=== PATIENT | female | born 1950 | race Caucasian/White ===

== ENCOUNTER 2016-07-05 09:00 | Outpatient (CLI) ==
[2014-06-15 19:50] VITALS: BMI 23.3
== END 2016-07-05 09:01 | disposition home or self-care (01) ==
LOC: LAB 09:00
PROVIDERS: ATTEND Clinical Nurse Specialist
DX: E78.2 Mixed hyperlipidemia (principal)
CPT/HCPCS: 36415; 80061

== ENCOUNTER 2017-04-07 13:35 | Outpatient (CLI) ==
[2014-06-15 19:50] VITALS: BMI 23.3
== END 2017-04-07 13:36 | disposition home or self-care (01) ==
LOC: RAD 13:35
PROVIDERS: ATTEND Family Medicine
DX: Z12.31 Encounter for screening mammogram for malignant neoplasm of breast (principal)
CPT/HCPCS: 77067

== ENCOUNTER 2017-04-16 08:51 | Outpatient (CLI) | payer OTHER ==
[2014-06-15 19:50] VITALS: BMI 23.3
--- NOTE | 2017-04-16 09:48 | MAMMO ---
EXAM: Right digital diagnostic mammogram (2-D and 3-D) History: Right breast asymmetry. Comparison: Screening mammogram 04/07/2017 Findings: Right breast density is scattered. CAD was reviewed by the radiologist. Tomosynthesis wa s performed. Additional spot compression views of the right breast demonstrate normal superimposed br east parenchyma. There are no suspicious masses and no architectural distortions. No microcalcifica tions. Impression: Benign right mammogram. Recommend return to routine screening mammography schedule. BIRADS 2
== END 2017-04-16 08:52 | disposition home or self-care (01) ==
LOC: RAD 08:51
PROVIDERS: ATTEND Family Medicine
DX: R92.8 Other abnormal and inconclusive findings on diagnostic imaging of breast (principal)

== ENCOUNTER 2017-12-01 13:36 | Emergency (ER) | payer OTHER ==
[2017-12-01 13:39] VITALS: BP 150/90; TEMP 98.6; BMI 25.8
--- NOTE | 2017-12-01 14:36 | ED.PDOC ---
General ED Provider: Dr. PIPER MATHEW Chief Complaint: Urinary Problem Stated Complaint: DYSURIA Time Seen by Physician: 01:39 (NURSE PRESENT AT ALL TIMES ) Mode of Arrival: Walk-In Information Source: Patient Exam Limitations: Other (BLADDER SUSPENSE ISSUE ) Primary Care Provider: CHELSEA LACY Nursing and Triage Documentation Reviewed and Agree: Yes Does patient meet sepsis criteria?: No System Inflammatory Response Syndrome: Not Applicable Sepsis Protocol: For patient's 13 years and over: Temp is 96.8 and below OR 101 and greater Pulse >90 BPM Resp >20/minute Acutely Altered Mental Status Are patient's symptoms suggestive of a new infection, such as: -Pneumonia -Skin, Soft Tissue -Endocarditis -UTI -Bone, Joint Infection -Implantable Device -Acute Abdominal Infection -Wound Infection -Meningitis -Blood Stream Catheter Infection -Unknown Complaint Exam - Complaint/Exam Patient Complains of: Reports: Dysuria Onset/Duration: 10 DAYS Symptoms Are: Still present Timing: Intermittent Initial Severity: Moderate Current Severity: Mild Location of Pain: Reports: Suprapubic Character: Reports: Burning, Dull Aggravating: Reports: Urination Alleviating: Reports: None Associated Signs and Symptoms: Reports: Dysuria. Denies: Diaphoresis, Back pain , Fever, Hematuria, Constipation, Blood in stool, Rectal pain, Appetite change, Nausea, Vomiting, Decreased urine output, Increased urine frequency, Increased thirst, Decreased activity, Lethargy, Abdominal Pain, Bubble bath use, Vaginal bleeding, Vaginal discharge, Genital swelling, Genital blisters, Retained foreign body Ovarian Torsion Risk Factors: Reports: None Surgical Obstruction Risk Factors: Reports: None RH Status: Unknown Related Surgical History: Reports: None Abdominal Findings: Present: None Differential Diagnoses: UTI Review of Systems - Review Of Systems Constitutional: Reports: No symptoms Eyes: Reports: No symptoms Ears, Nose, Mouth, Throat: Reports: No symptoms Respiratory: Reports: No symptoms Cardiac: Reports: No symptoms GI: Reports: No symptoms : Reports: Dysuria Musculoskeletal: Reports: No symptoms Skin: Reports: No symptoms Neurological: Reports: No symptoms Endocrine: Reports: No symptoms Hematologic/Lymphatic: Reports: No symptoms All Other Systems: Reviewed and Negative Past Medical History - Past Medical History Previously Healthy: Yes Endocrine: Reports: None Cardiovascular: Reports: None Respiratory: Reports: None Hematological: Reports: None Gastrointestinal: Reports: None Genitourinary: Reports: UTI Neuro/Psych: Reports: None Musculoskeletal: Reports: None Cancer: Reports: None Last Menstrual Period: n/a - Surgical History General Surgical History: Reports: None - Family History Family History: Reports: None - Social History Smoking Status: Never smoker Hx Substance Use: No Alcohol Screening: None Physical Exam - Physical Exam Appearance: Well-appearing, No pain distress, Well-nourished Eyes: TAINA, EOMI, Conjunctiva clear ENT: Ears normal, Nose normal, Oropharynx normal Respiratory: Airway patent, Breath sounds clear, Breath sounds equal, Respirations nonlabored Cardiovascular: RRR, Pulses normal, No rub, No murmur GI/: Soft, Nontender, No masses, Bowel sounds normal, No Organomegaly Musculoskeletal: Normal strength, ROM intact, No edema, No calf tenderness Skin: Warm, Dry, Normal color Neurological: Sensation intact, Motor intact, Reflexes intact, Cranial nerves intact, Alert, Oriented Psychiatric: Affect appropriate, Mood appropriate Critical Care Note - Critical Care Note Total Time (mins): 0 Course - Course Hematology/Chemistry: 12/01/17 13:59 Orders, Labs, Meds: Lab Review 12/01/17 12/01/17 13:48 13:59 WBC 6.44 RBC 3.84 L Hgb 12.2 Hct 36.8 L MCV 95.8 MCH 31.8 H MCHC 33.2 RDW Coeff of Asaf 13.4 Plt Count 295 Immature Gran % (Auto) 0.5 Neut % (Auto) 66.1 Lymph % (Auto) 26.6 [place] % (Auto) 5.4 Eos % (Auto) 1.1 Baso % (Auto) 0.3 Immature Gran # (Auto) 0.0 Neut # (Auto) 4.3 Lymph # (Auto) 1.7 [place] # (Auto) 0.4 Eos # (Auto) 0.1 Baso # (Auto) 0.0 Urine Color Yellow Urine Clarity Clear Urine pH 6.0 Ur Specific [place] 1.010 Urine Protein Negative Urine Glucose (UA) Negative Urine Ketones Negative Urine Blood Negative Urine Nitrite Positive Urine Bilirubin Negative Urine Urobilinogen 0.2 Ur Leukocyte Esterase Negative Urine Microscopic RBC 0-2 Urine Microscopic WBC 0-2 Ur Squamous Epith Cells 0-2 Urine Bacteria 1+ Orders Category Date Time Status CBC W/ AUTO DIFF Stat LAB 12/01/17 13:59 Completed COMPREHENSIVE METABOLIC PANEL Stat LAB 12/01/17 13:59 Received URINALYSIS C & S IF INDICATED Stat LAB 12/01/17 13:48 Completed URINE CULTURE Stat LAB 12/01/17 14:40 Received Ceftriaxone Sodium [Rocephin] MEDS 12/01/17 14:41 Discontinued 1 gm IM ONCE STA Lidocaine HCl/Pf [Lidocaine HCl 1% Sdv] MEDS 12/01/17 14:41 Discontinued 2.1 ml IM ONCE STA Medications Discontinued Medications Generic Name Dose Route Start Last Admin Trade Name Guerrero PRN Reason Stop Dose Admin Ceftriaxone Sodium 1 gm 12/01/17 14:41 Rocephin IM 12/01/17 14:42 ONCE STA Lidocaine HCl 2.1 ml 12/01/17 14:41 Lidocaine Hcl 1% Sdv IM 12/01/17 14:42 ONCE STA Vital Signs: Temp Pulse Resp BP Pulse Ox 12/01/17 13:37 98.6 F 93 H 16 150/90 H 95 Departure - Departure Time of Disposition: 14:43 Disposition: HOME SELF-CARE Discharge Problem: Urinary symptoms, Urinary tract infectious disease Instructions: Dysuria (ED), Urinary Tract Infection in Women (ED) Condition: Good Pt referred to PMD for follow-up: Yes IPMP verified?: No Additional Instructions: Please call your Family Physician as soon as possible to schedule a follow-up appointment. Prescriptions: Hydrocodone/Acetaminophen [[place] 10-325 Tablet] 1 each PO Q8HR #12 tablet Allergies/Adverse Reactions: Allergies cefadroxil hydrate [From [facility] [place]] Adverse Reaction (Verified 12/01/17 13:40) Home Medications: Ambulatory Orders Alprazolam 0.5 mg PO BEDTIME PRN 12/01/17 Aspirin 325 mg PO DAILY 12/01/17 Calcium Carbonate [Calcium] 600 mg PO DAILY 12/01/17 Carvedilol 6.25 mg PO DAILY 12/01/17 Cholecalciferol (Vitamin D3) [Vitamin D-400] 400 unit PO DAILY 12/01/17 Cyanocobalamin (Vitamin B-12) [Vitamin B-12] 500 mcg PO DAILY 12/01/17 Furosemide 20 mg PO DAILY 12/01/17 Hydrocodone/Acetaminophen [[place] 10-325 Tablet] 1 each PO Q8HR #12 tablet Loperamide HCl [Imodium] 2 mg PO LOOSE STOOL PRN PRN 12/01/17 Multivitamin 1 cap PO DAILY 12/01/17 Omeprazole [Prilosec] 20 mg PO QDAC 12/01/17 Sacubitril/Valsartan [Entresto 24 mg-26 mg Tablet] 1 each PO DAILY 12/01/17 Spironolactone 25 mg PO DAILY 12/01/17 Vitamin E 400 unit PO DAILY 12/01/17 Disposition Discussed With: Patient
[2017-12-01] MEDS ORDERED: ROCEPHIN IM STA (14:41)
[2017-12-01] MEDS ORDERED: LIDOCAINE HCL 1% SDV IM STA (14:41)
== END 2017-12-01 15:07 | disposition home or self-care (01) ==
LOC: ED 13:36
DX: R30.0 Dysuria (principal); N39.0 Urinary tract infection, site not specified
CPT/HCPCS: 36415; 80053; 81001; 85025; 87086; 96372; 99283

== ENCOUNTER 2018-01-06 10:35 | Day surgery (SDC) | payer OTHER ==
[2018-01-06 10:50] VITALS: TEMP 97.8
[2018-01-06] MEDS ORDERED: VERSED ONE (11:12)
[2018-01-06] MEDS ORDERED: DIPRIVAN 20 ML VIAL IVP ONE (11:12)
--- NOTE | 2018-01-07 13:03 | OP ---
INDICATIONS FOR PROCEDURE: 67-year-old female presents for colonoscopy exam. She has a remote history of colon polyp of unknown pathology with left colonoscopy greater than 5 years ago. She has a family history of colon cancer involving her father. MEDICATIONS: SEE ANESTHESIA NOTES. PROCEDURE: COLONOSCOPY. REPORT: The risks, benefits, alternatives and limitations were discussed in detail with the patient. Informed consent was obtained. After adequate sedation was achieved, a digital rectal exam revealed good tone, no masses. The colonoscope was introduced into the rectum and advanced under direct visual guidance to the cecum. The cecum was identified by the appendiceal orifice and IC valve. In the cecum there was a small AVM. I then slowly withdrew the scope in circumferential manner examining the mucosa quite carefully. I looked on the proximal and distal side of folds and flexures as best as possible. I was able to retroflex the scope in the right colon and left colon to increase visualization. I noted a few diverticula scattered throughout the sigmoid colon. No other abnormalities were noted. The prep was good. The withdrawal time was 6 minutes and 15 seconds. The patient tolerated the procedure well with stable vital signs and pulse oximetry throughout. IMPRESSION: 1. SMALL CECAL AVM. 2. SIGMOID DIVERTICULOSIS. RECOMMENDATIONS: 1. High fiber diet. 2. Office visit as needed. 3. Colonoscopy examination again in 5 years, sooner if she would have any signs or symptoms to indicate otherwise. CC: DR. REGINO BARROSO
[2018-01-08 13:57] VITALS: BP 132/67
== END 2018-01-06 12:35 | disposition home or self-care (01) ==
LOC: SURG 10:35
PROVIDERS: ATTEND Internal Medicine Gastroenterology
DX: Z86.010 Personal history of colon polyps (principal); Q27.33 Arteriovenous malformation of digestive system vessel; K57.90 Diverticulosis of intestine, part unspecified, without perforation or abscess without bleeding
CPT/HCPCS: 00811; G0105

== ENCOUNTER 2018-05-06 10:58 | Outpatient (CLI) | payer OTHER ==
--- NOTE | 2018-05-08 09:08 | MAMMO ---
EXAM: Digital screening mammogram with tomosynthesis and and catheter HISTORY: Screening mammogram COMPARISON: Mammogram 04/16/2017 and 04/07/2017 FINDINGS: Bilateral CC and MLO views of the breasts were performed digitally and demonstrate scatter ed fibroglandular breast density. Benign stable right breast nodule is redemonstrated. There is a n odular asymmetry noted in the medial left breast on CC view with an adjacent benign-appearing calcifi cation. This is more prominent than on prior examination and measures 4.9 cm from the nipple. IMPRESSION: Nodular asymmetry in the medial left breast RECOMMENDATION: Left breast be spot compression views with diagnostic ultrasound as clinically indicated BIRADS category 0: Needs further evaluation
== END 2018-05-06 10:59 | disposition home or self-care (01) ==
LOC: RAD 10:58
PROVIDERS: ATTEND Family Medicine
DX: Z12.31 Encounter for screening mammogram for malignant neoplasm of breast (principal)

== ENCOUNTER 2018-05-18 09:30 | Outpatient (CLI) | payer OTHER ==
--- NOTE | 2018-05-18 10:03 | MAMMO ---
EXAM: Left digital diagnostic mammogram (2-D and 3-D) History: Left breast asymmetry. Comparison: Bilateral mammogram 05/06/2018 Findings: Left breast density is scattered. Additional views of the left breast reveal normal super imposed breast parenchyma. Postsurgical changes of the left breast again noted. Benign left breast calcifications are stable. No suspicious masses and no microcalcifications. Impression: Benign left breast mammogram. Recommend return to routine screening mammography schedul e. BIRADS 2, benign
== END 2018-05-18 09:31 | disposition home or self-care (01) ==
LOC: RAD 09:30
PROVIDERS: ATTEND Family Medicine
DX: R92.2 Inconclusive mammogram (principal)

== ENCOUNTER 2018-06-12 08:41 | Outpatient (CLI) ==
--- NOTE | 2018-06-12 10:42 | CT ---
EXAM: CT THORAX HISTORY: Chest wall pain, history of breast cancer, incisional pain. Previous left breast lumpectom y. TECHNIQUE: CT thorax with intravenous contrast. Multiplanar images presented. 75 ml Omnipaque COMPARISON: No comparison CT thorax. FINDINGS: Normal heart size. No pericardial effusion. There is at least mild atherosclerotic disease. A few nonspecific mediastinal lymph nodes are seen. Lungs reveal a few scattered foci of mild pleural thickening mainly on the right and a few tiny pulmo nary opacities also on the right which may represent areas of fibrosis. Largest measures 9 x [address] seen on coronal image 53. A micro nodule is seen in the anterior right cardiophrenic angle on axi al image 37. Lungs are otherwise unremarkable. There is no pleural fluid. Bones are grossly unremarkable. There has been previous sternotomy. There is no chest wall thickeni ng. The peripheral soft tissues have no distinct abnormality. There is a small para esophageal maggie ia. IMPRESSION: 1. No clear etiology for the patient's symptoms. 2. Pulmonary findings as described in the middle paragraph of the report. Consider follow-up CT tho rax in 4-6 months. 3. Small paraesophageal hernia. 4. Atherosclerosis. 5. Nonspecific mediastinal lymph nodes.
== END 2018-06-12 08:42 | disposition home or self-care (01) ==
LOC: RAD 08:41
PROVIDERS: ATTEND Family Medicine
DX: R07.89 Other chest pain (principal); L76.82 Other postprocedural complications of skin and subcutaneous tissue; Z85.3 Personal history of malignant neoplasm of breast
CPT/HCPCS: 36415; 82565

== ENCOUNTER 2018-06-17 11:38 | Outpatient (CLI) | payer OTHER ==
--- NOTE | 2018-06-17 12:12 | DI ---
EXAM: Sternum two views HISTORY: Incisional pain. FINDINGS / IMPRESSION: Previous sternotomy has occurred. The sternotomy wires are intact. There i s no evidence of fracture or bony destruction within limits of this radiographic series.
== END 2018-06-17 11:39 | disposition home or self-care (01) ==
LOC: RAD 11:38
PROVIDERS: ATTEND Family Medicine
DX: L76.82 Other postprocedural complications of skin and subcutaneous tissue (principal); R07.89 Other chest pain

== ENCOUNTER 2018-08-04 21:17 | Emergency (ER) | payer OTHER ==
[2018-08-04 21:31] VITALS: BMI 25.4
--- NOTE | 2018-08-04 21:48 | ED.PDOC ---
General ED Provider: Dr. CAITLIN FLYNN Chief Complaint: Back Pain Stated Complaint: Comes to the ER with Multiple complaints. Urinary symptoms with lower back pain. Intermittent chest pain with radiation to the shoulder x 2 days. States does not feel right. Has a history CHF. Time Seen by Physician: 21:41 Mode of Arrival: Walk-In Information Source: Patient Exam Limitations: No limitations Primary Care Provider: CHELSEA LACY Nursing and Triage Documentation Reviewed and Agree: Yes Does patient meet sepsis criteria?: No System Inflammatory Response Syndrome: Not Applicable Sepsis Protocol: For patient's 13 years and over: Temp is 96.8 and below OR 101 and greater Pulse >90 BPM Resp >20/minute Acutely Altered Mental Status Are patient's symptoms suggestive of a new infection, such as: -Pneumonia -Skin, Soft Tissue -Endocarditis -UTI -Bone, Joint Infection -Implantable Device -Acute Abdominal Infection -Wound Infection -Meningitis -Blood Stream Catheter Infection -Unknown Review of Systems - Review Of Systems Constitutional: Reports: Other (Feels poorly ) Eyes: Reports: No symptoms Ears, Nose, Mouth, Throat: Reports: No symptoms Respiratory: Reports: No symptoms Cardiac: Reports: Chest pain (intermitent on the left chest ) GI: Reports: No symptoms : Reports: No symptoms Musculoskeletal: Reports: Back pain, Joint pain (right shoulder pain ) Skin: Reports: No symptoms Neurological: Reports: No symptoms Endocrine: Reports: No symptoms Hematologic/Lymphatic: Reports: No symptoms All Other Systems: Reviewed and Negative Past Medical History - Past Medical History Previously Healthy: Yes Endocrine: Reports: None Cardiovascular: Reports: Hypertension, CHF (EF 35 % non ischemic ) Respiratory: Reports: None Hematological: Reports: None Gastrointestinal: Reports: None Genitourinary: Reports: UTI, Kidney stones Neuro/Psych: Reports: None Musculoskeletal: Reports: None Cancer: Reports: Breast Last Menstrual Period: hyst 2016 - Surgical History General Surgical History: Reports: Hysterectomy, Tonsillectomy, Adenoidectomy, CABG (2016 ) - Family History Family History: Reports: None - Social History Smoking Status: Never smoker Hx Substance Use: No Alcohol Screening: None - Immunizations Tetanus Shot up to Date: Yes (2017) Physical Exam - Physical Exam Appearance: Ill-appearing Ill-appearing: Moderate Pain Distress: Mild Neck: Supple Respiratory: Airway patent, Breath sounds clear, Breath sounds equal, Respirations nonlabored Cardiovascular: RRR GI/: Soft, Nontender, No masses, Bowel sounds normal, No Organomegaly Musculoskeletal: Normal strength Skin: Warm, Dry Neurological: Alert, Oriented Psychiatric: Anxious Interpretation - Radiology Interpretation Radiology Interpretation By: Radiologist Radiology Results: No acute changes Exam Interpreted: CT Scan - Area Counselor Rate: Normal Rhythm: Sinus - EKG Interpretation Time of EKG #1: 21:47 Rate: Normal Rhythm: Sinus Ectopy: None [place]: NL ST Segment: Normal 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 De La Torre Time of Notification: 23:48 Critical Care Note - Critical Care Note Total Time (mins): 40 Course - Course Hematology/Chemistry: 08/04/18 21:48 08/04/18 21:48 Orders, Labs, Meds: Lab Review 08/04/18 08/04/18 08/04/18 21:48 21:48 21:48 WBC 7.38 RBC 3.95 L Hgb 12.6 Hct 37.5 MCV 94.9 MCH 31.9 H MCHC 33.6 RDW Coeff of Asaf 13.3 Plt Count 297 Immature Gran % (Auto) 0.1 Neut % (Auto) 61.9 Lymph % (Auto) 28.2 [place] % (Auto) 8.3 Eos % (Auto) 1.1 Baso % (Auto) 0.4 Immature Gran # (Auto) 0.0 Neut # (Auto) 4.6 Lymph # (Auto) 2.1 [place] # (Auto) 0.6 Eos # (Auto) 0.1 Baso # (Auto) 0.0 Sodium 141.0 Potassium 3.30 L Chloride 104.0 Carbon Dioxide 23.0 Anion Gap 17.30 BUN 17.0 Creatinine 0.60 Estimated GFR (MDRD) 100.00 BUN/Creatinine Ratio 28.33 Glucose 158.0 H Calcium 9.40 Total Bilirubin 0.20 AST 35.0 ALT 20.7 Alkaline Phosphatase 85.0 Total Creatine Kinase 43.5 Troponin I < 0.012 NT-Pro-B Natriuret Pep Total Protein 7.20 Albumin 4.30 Globulin 2.90 Albumin/Globulin Ratio 1.48 Amylase 109.4 Lipase 177.1 Urine Color Urine Clarity Urine pH Ur Specific [place] Urine Protein Urine Glucose (UA) Urine Ketones Urine Blood Urine Nitrite Urine Bilirubin Urine Urobilinogen Ur Leukocyte Esterase Urine Microscopic RBC Urine Microscopic WBC Ur Squamous Epith Cells Urine Mucus 08/04/18 08/04/18 21:48 22:06 WBC RBC Hgb Hct MCV MCH MCHC RDW Coeff of Asaf Plt Count Immature Gran % (Auto) Neut % (Auto) Lymph % (Auto) [place] % (Auto) Eos % (Auto) Baso % (Auto) Immature Gran # (Auto) Neut # (Auto) Lymph # (Auto) [place] # (Auto) Eos # (Auto) Baso # (Auto) Sodium Potassium Chloride Carbon Dioxide Anion Gap BUN Creatinine Estimated GFR (MDRD) BUN/Creatinine Ratio Glucose Calcium Total Bilirubin AST ALT Alkaline Phosphatase Total Creatine Kinase Troponin I NT-Pro-B Natriuret Pep 322.000 H Total Protein Albumin Globulin Albumin/Globulin Ratio Amylase Lipase Urine Color Yellow Urine Clarity Clear Urine pH 5.5 Ur Specific [place] 1.025 Urine Protein Negative Urine Glucose (UA) Negative Urine Ketones Negative Urine Blood Trace-lysed Urine Nitrite Negative Urine Bilirubin Negative Urine Urobilinogen 0.2 Ur Leukocyte Esterase Trace Urine Microscopic RBC 0-2 Urine Microscopic WBC 2-5 Ur Squamous Epith Cells 0-2 Urine Mucus 1+ Orders Category Date Time Status EKG-(ED ONLY) Stat CARDIO 08/04/18 21:39 Completed IV [ED IV/MEDIPORT/POWERPORT] .ONCE EMERGENCY 08/04/18 23:26 Active AMYLASE Stat LAB 08/04/18 21:48 Completed CBC W/ AUTO DIFF Stat LAB 08/04/18 21:48 Completed COMPREHENSIVE METABOLIC PANEL Stat LAB 08/04/18 21:48 Completed CREATINE KINASE Stat LAB 08/04/18 21:48 Completed LIPASE Stat LAB 08/04/18 21:48 Completed PROBNP [NT-PROBNP] Stat LAB 08/04/18 21:48 Completed TROPONIN I Stat LAB 08/04/18 21:48 Completed URINALYSIS C & S IF INDICATED Stat LAB 08/04/18 22:06 Completed 0.9 % Sodium Chloride [Saline Flush] MEDS 08/04/18 23:26 Ordered 1 syr IVF PRN PRN Hydromorphone HCl [Dilaudid 1 mg/ml Syringe] MEDS 08/04/18 22:28 Discontinued 1 mg IVP ONCE STA Morphine Sulfate [Morphine 4 mg/ml Syringe] MEDS 08/04/18 22:05 Discontinued 4 mg IVP ONCE STA Ondansetron [Zofran Odt] MEDS 08/04/18 22:05 Discontinued 4 mg PO ONCE STA CT ABD/PEL WO RENAL STONE PROT Stat RADS 08/04/18 21:[address] CHEST W/O CONTRAST Stat RADS 08/04/18 21:33 Completed Medications Generic Name Dose Route Start Last Admin Trade Name Freq PRN Reason Stop Dose Admin Sodium Chloride 1 syr 08/04/18 23:26 Saline Flush IVF PRN PRN To flush IV Discontinued Medications Generic Name Dose Route Start Last Admin Trade Name Freq PRN Reason Stop Dose Admin Hydromorphone HCl 1 mg 08/04/18 22:28 08/04/18 22:30 Dilaudid 1 Mg/Ml Syringe IVP 08/04/18 22:29 1 mg ONCE STA Administration Morphine Sulfate 4 mg 08/04/18 22:05 08/04/18 22:18 Morphine 4 Mg/Ml Syringe IVP 08/04/18 22:06 4 mg ONCE STA Administration Ondansetron HCl 4 mg 08/04/18 22:05 08/04/18 22:18 Zofran Odt PO 08/04/18 22:06 4 mg ONCE STA Administration Vital Signs: Temp Pulse Resp BP Pulse Ox 08/04/18 23:26 99.5 F 80 17 132/82 94 L 08/04/18 22:06 87 22 156/88 H 95 08/04/18 21:17 99.7 F H 90 20 156/88 H 94 L DAMON Risk Score Age >/= 65: No >/= 3 CAD Risk Factors: Yes Known CAD (Stenosis >/= 50%): No ASA Use in Past 7 Days: Yes Severe Angina (>/= 2 episodes in 24 hours): No EKG ST Changes >/= 0.5mm: No Postive Cardiac Marker: No DAMON Total Score: 2 DAMON Risk Score: Risk Score Odds of by 30D 0 0.1 (0.1-0.2) 1 0.3 (0.2-0.3) 2 0.4 (0.3-0.5) 3 0.7 (0.6-0.9) 4 1.2 (1.0-1.5) 5 2.2 (1.9-2.6) 6 3.0 (2.5-3.6) 7 4.8 (3.8-6.1) Departure - Departure Time of Disposition: 23:55 Disposition: TSF SHORT-TRM HOSP Discharge Problem: Backache, Angina at rest Condition: Stable Pt referred to PMD for follow-up: No IPMP verified?: No Allergies/Adverse Reactions: Allergies cefadroxil hydrate [place] [facility] [place] Adverse Reaction (Verified 12/01/17 13:40) Home Medications: Ambulatory Orders Alprazolam 0.5 mg PO BEDTIME PRN 12/01/17 Aspirin 81 mg PO DAILY 12/01/17 Calcium Carbonate [Calcium] 600 mg PO DAILY 12/01/17 Carvedilol 6.25 mg PO BID 12/01/17 Cholecalciferol (Vitamin D3) [Vitamin D-400] 400 unit PO DAILY 12/01/17 Cyanocobalamin (Vitamin B-12) [Vitamin B-12] 500 mcg PO DAILY 12/01/17 Furosemide 40 mg PO BID 12/01/17 Loperamide HCl [Imodium] 2 mg PO DAILY PRN 12/01/17 Multivitamin 1 cap PO DAILY 12/01/17 Omeprazole [Prilosec] 20 mg PO QDAC 12/01/17 Sacubitril/Valsartan [Entresto 24 mg-26 mg Tablet] 1 tab PO BID 12/01/17 Spironolactone 12.5 mg PO DAILY 12/01/17 Vitamin E 400 unit PO DAILY 12/01/17 Estradiol [Estrace] 42.5 gm VG 3 TIMES PER WEEK 01/05/18 Alirocumab [Praluent Pen] 75 mg SQ DIRECTED 08/04/18 Hydrocodone/Acetaminophen [[place] 5-325 Tablet] 5 - 325 mg PO BID PRN 08/04/18
[2018-08-04] MEDS ORDERED: ZOFRAN ODT PO STA (22:05)
[2018-08-04] MEDS ORDERED: MORPHINE 4 MG/ML SYRINGE IVP STA (22:05)
--- NOTE | 2018-08-04 22:16 | CT ---
Exam: CT of the chest without contrast History: Chest pain FINDINGS: The lung windows show no pulmonary parenchymal abnormality. Normal mediastinal lymph node s. Atherosclerotic calcification of the aorta without aneurysm. Prior mediastinotomy. No acute kvng st wall abnormality. Small hiatus hernia. See abdominal CT for upper abdomen. Impression: 1. No acute findings of the chest.
--- NOTE | 2018-08-04 22:22 | CT ---
EXAM: CT scan abdomen pelvis without contrast HISTORY: Back pain COMPARISON: CT scan abdomen pelvis of 10/29/2012 FINDINGS: Contiguous axial images obtained through the abdomen pelvis without contrast utilizing 3-m m collimation. Sagittal and coronal reconstructions were imaged and reviewed The visualized lung ba ses are clear. There is moderate sized hiatal hernia. Benign granulomatous changes are seen in the liver and spleen. The gallbladder is contracted. The pancreas and adrenal glands have a normal une nhanced CT appearance. Atherosclerotic changes are seen involving the aorta without aneurysm formati on. There has been prior hysterectomy. There is diverticulosis without diverticulitis.. Bone windo ws reveals no it is of lytic or blastic lesions IMPRESSION: Hiatal hernia. ASVD without aneurysm. Diverticulosis without diverticulitis. No free fluid or inflammatory changes.
[2018-08-04] MEDS ORDERED: DILAUDID 1 MG/ML SYRINGE IVP STA (22:28)
[2018-08-04 23:27] VITALS: BP 132/82; TEMP 99.5
== END 2018-08-04 23:59 | disposition short-term general hospital (02) ==
LOC: ED 21:17
DX: I20.9 Angina pectoris, unspecified (principal); M54.5 Low back pain; R39.9 Unspecified symptoms and signs involving the genitourinary system; I50.9 Heart failure, unspecified; I10 Essential (primary) hypertension; Z79.899 Other long term (current) drug therapy; Z87.440 Personal history of urinary (tract) infections; Z87.442 Personal history of urinary calculi
CPT/HCPCS: 36415; 74176; 80053; 81001; 82150; 82550; 83690; 83880; 84484; 85025; 93005; 93010; 96374; 96375; 99285

== ENCOUNTER 2018-08-05 00:07 | Outpatient (CLI) | payer OTHER ==
[2018-08-04 21:31] VITALS: BMI 25.4
== END 2018-08-05 00:28 | disposition short-term general hospital (02) ==
LOC: AMBL 00:07
PROVIDERS: ATTEND Internal Medicine Geriatric Medicine
DX: M54.5 Low back pain (principal); R07.9 Chest pain, unspecified

== ENCOUNTER 2018-08-09 15:07 | Emergency (ER) | payer OTHER ==
[2018-08-09 15:11] VITALS: BP 149/89; TEMP 99.3; BMI 25.5
[2018-08-09] MEDS: MORPHINE 2 MG/ML SYRINGE IM STA (15:45)
[2018-08-09] MEDS: PHENERGAN 25 MG/ML VIAL IM STA (15:45)
--- NOTE | 2018-08-09 15:50 | CT ---
EXAM: CT scan of the lumbar spine without contrast HISTORY: Low back pain TECHNIQUE: Helical imaging of the lumbar spine was performed without contrast. Sagittal and coronal reconstructions and axial images were provided for interpretation. FINDINGS: Five lumbar-type vertebral bodies are seen. The alignment of the lumbar spine is normal. There is no pars defect. No acute fractures are seen within the sacrum. The paraspinal soft tissue s are normal. Segmental analysis: T12-L1: The central canal and neural foramina appear patent. L1-L2: The central canal and neural foramina appear adequately patent. L2-L3: The central canal and neural foramina appear adequately patent. There is mild disc bulge. L3-L4: The central canal and neural foramina appear adequately patent. L4-L5: The central canal and lateral recesses and neural foramina appear adequately patent. L5-S1: The central canal appears patent. The suspicion for a left paracentral broad-based disc protr usion at this level measuring 5.8 mm AP, 6.7 mm transverse. The lesion is located medial to the left neural foramen. There is narrowing of the medial aspect of the left neural foramen. The right neur al foramen appears patent. IMPRESSION: No acute fractures are seen within the lumbar spine. There is no central canal stenosis. At the L5-S1 level there is suspicion for a left medial foraminal broad-based disc protrusion measuri ng up to 5.8 mm AP. The findings cause stenosis of the medial left neural foramen and may affect the exiting left L5 nerve root. There is no spondylolisthesis.
--- NOTE | 2018-08-09 15:57 | ED.PDOC ---
General ED Provider: Dr. LAURA POTTS-ER Chief Complaint: Back Pain Stated Complaint: my back is hurting Time Seen by Physician: 15:10 Mode of Arrival: Walk-In Information Source: Patient Exam Limitations: No limitations Primary Care Provider: CHELSEA ALLISON Nursing and Triage Documentation Reviewed and Agree: Yes Does patient meet sepsis criteria?: No System Inflammatory Response Syndrome: Not Applicable Sepsis Protocol: For patient's 13 years and over: Temp is 96.8 and below OR 101 and greater Pulse >90 BPM Resp >20/minute Acutely Altered Mental Status Are patient's symptoms suggestive of a new infection, such as: -Pneumonia -Skin, Soft Tissue -Endocarditis -UTI -Bone, Joint Infection -Implantable Device -Acute Abdominal Infection -Wound Infection -Meningitis -Blood Stream Catheter Infection -Unknown Musculoskeletal Complaint Exam - Back Pain Complaint/Exam Mechanism of Injury: Reports: No known trauma Onset/Duration: several hours Symptoms Are: Still present Initial Severity: Mild Current Severity: Moderate Location: Reports: Discrete Character: Reports: Dull, Aching Aggravating: Reports: Movements, Lifting, Bending, Walking Alleviating: Reports: None Associated Signs and Symptoms: Denies: Swelling, Redness, Bruising, Fever, Weakness, Numbness, Tingling, Abdominal pain, Flank pain, Bladder incontinence, Bowel incontinence, Weight loss, Pain with weight bearing Related History: Reports: Previous back injury AAA Risk Factors: Reports: None Cauda Equina Risk Factors: Reports: None Epidural Abcess Risk Factors: Reports: None Related Surgical History: Reports: None Focal Tenderness: Yes Paraspinal Muscle Tenderness: No Paraspinal Muscle Spasm: No Scoliosis: No Lordosis: No Kyphosis: No SLR Test: Right Negative, Left Negative Hip Motion Testing Pain: Right Negative, Left Negative Focal Weakness: Present: None Focal Sensory Loss: Present: None Gait: Present: Normal Differential Diagnoses: Herniated Disk Review of Systems - Review Of Systems Constitutional: Reports: No symptoms Eyes: Reports: No symptoms Ears, Nose, Mouth, Throat: Reports: No symptoms Respiratory: Reports: No symptoms Cardiac: Reports: No symptoms GI: Reports: No symptoms : Reports: No symptoms Musculoskeletal: Reports: Back pain Skin: Reports: No symptoms Neurological: Reports: No symptoms Endocrine: Reports: No symptoms Hematologic/Lymphatic: Reports: No symptoms All Other Systems: Reviewed and Negative Past Medical History - Past Medical History Previously Healthy: Yes Endocrine: Reports: None Cardiovascular: Reports: Hypertension, CHF (EF 35 % non ischemic ) Respiratory: Reports: None Hematological: Reports: None Gastrointestinal: Reports: None Genitourinary: Reports: UTI, Kidney stones Neuro/Psych: Reports: None Musculoskeletal: Reports: None Cancer: Reports: Breast Last Menstrual Period: hysterectomy - Surgical History General Surgical History: Reports: Hysterectomy, Tonsillectomy, Adenoidectomy, CABG (2016 ) - Family History Family History: Reports: None - Social History Smoking Status: Never smoker Hx Substance Use: No Alcohol Screening: None Physical Exam - Physical Exam Appearance: Well-appearing, No pain distress, Well-nourished Pain Distress: Mild Eyes: TAINA, EOMI, Conjunctiva clear ENT: Ears normal, Nose normal, Oropharynx normal Neck: Supple Respiratory: Airway patent, Breath sounds clear, Breath sounds equal, Respirations nonlabored Cardiovascular: RRR, Pulses normal, No rub, No murmur GI/: Soft, Nontender, No masses, Bowel sounds normal, No Organomegaly Musculoskeletal: Limited ROM Skin: Warm, Dry, Normal color Neurological: Sensation intact, Motor intact, Reflexes intact, Cranial nerves intact, Alert, Oriented Psychiatric: Affect appropriate, Mood appropriate Interpretation - Radiology Interpretation Radiology Interpretation By: Radiologist Radiology Results: Positive Exam Interpreted: CT Scan Re-Evaluation - Re-Evaluation Time of Re-Evaluation: 15:57 Status: Improved Vital Signs Stable: Yes Pain Level: 1 Appearance: NAD Lungs: Clear Skin: Warm and Dry Neuro: Alert and Oriented X3 CV: RRR Critical Care Note - Critical Care Note Total Time (mins): 0 Course - Course Orders, Labs, Meds: Orders Category Date Time Status Morphine Sulfate [Morphine 2 mg/ml Syringe] MEDS 08/09/18 15:21 Discontinued 4 mg IM ONCE STA Promethazine HCl [Phenergan 25 mg/ml Vial] MEDS 08/09/18 15:21 Discontinued 25 mg IM ONCE STA CT LUMBAR SPINE W/O CONTRAST Stat RADS 08/09/18 15:20 Completed Medications Discontinued Medications Generic Name Dose Route Start Last Admin Trade Name Freq PRN Reason Stop Dose Admin Morphine Sulfate 4 mg 08/09/18 15:21 08/09/18 15:45 Morphine 2 Mg/Ml Syringe IM 08/09/18 15:22 4 mg ONCE STA Administration Promethazine HCl 25 mg 08/09/18 15:21 08/09/18 15:45 Phenergan 25 Mg/Ml Vial IM 08/09/18 15:22 25 mg ONCE STA Administration Vital Signs: Temp Pulse Resp BP Pulse Ox 08/09/18 15:07 99.3 F 87 20 149/89 H 97 Departure - Departure Time of Disposition: 15:57 Disposition: HOME SELF-CARE Discharge Problem: Low back pain Qualifiers: Chronicity: acute Back pain laterality: unspecified Sciatica presence: unspecified whether sciatica present Qualified Code(s): M54.5 - Low back pain Instructions: Acute Low Back Pain (ED) Condition: Good Pt referred to PMD for follow-up: Yes IPMP verified?: No Additional Instructions: use your pain meds from home---medrol dose pack---talk to dr allison about referral vs physical therapy Allergies/Adverse Reactions: Allergies cefadroxil hydrate [From [facility] [place]] Adverse Reaction (Verified 08/09/18 15:12) Home Medications: Ambulatory Orders Alprazolam 0.5 mg PO BEDTIME PRN 12/01/17 Aspirin 81 mg PO DAILY 12/01/17 Calcium Carbonate [Calcium] 600 mg PO DAILY 12/01/17 Carvedilol 6.25 mg PO BID 12/01/17 Cholecalciferol (Vitamin D3) [Vitamin D-400] 400 unit PO DAILY 12/01/17 Cyanocobalamin (Vitamin B-12) [Vitamin B-12] 500 mcg PO DAILY 12/01/17 Furosemide 40 mg PO BID 12/01/17 Loperamide HCl [Imodium] 2 mg PO DAILY PRN 12/01/17 Multivitamin 1 cap PO DAILY 12/01/17 Omeprazole [Prilosec] 20 mg PO QDAC 12/01/17 Sacubitril/Valsartan [Entresto 24 mg-26 mg Tablet] 1 tab PO BID 12/01/17 Spironolactone 12.5 mg PO DAILY 12/01/17 Vitamin E 400 unit PO DAILY 12/01/17 Estradiol [Estrace] 42.5 gm VG 3 TIMES PER WEEK 01/05/18 Alirocumab [Praluent Pen] 75 mg SQ DIRECTED 08/04/18 Hydrocodone/Acetaminophen [[place] 5-325 Tablet] 5 - 325 mg PO BID PRN 08/04/18 Disposition Discussed With: Patient, Family
== END 2018-08-09 16:40 | disposition home or self-care (01) ==
LOC: ED 15:07
DX: M54.5 Low back pain (principal)
CPT/HCPCS: 96372; 99282

== ENCOUNTER 2021-05-12 17:58 | Inpatient (IN) ==
[2021-05-12] MEDS ORDERED: SODIUM CHLORIDE 1,000 ML IV STA ×2 (18:04→18:17)
[2021-05-12] MEDS ORDERED: MORPHINE 2 MG/ML VIAL IVP STA (18:05)
[2021-05-12] MEDS ORDERED: ZOFRAN 4 MG/2 ML IVP STA (18:05)
[2021-05-12] MEDS ORDERED: BENTYL IM STA (18:05)
--- NOTE | 2021-05-12 18:13 | ED.PDOC ---
General ED Provider: Dr. LAURA POTTS Chief Complaint: Abdominal Pain Stated Complaint: my diverticulitis is flaring up--dr allison put me on some medicine but its not working Time Seen by Provider: 05/12/21 18:11 Mode of Arrival: Walk-In Information Source: Patient Exam Limitations: No limitations Primary Care Provider: CHELSEA ALLISON Nursing and Triage Documentation Reviewed and Agree: Yes Does patient meet sepsis criteria?: No System Inflammatory Response Syndrome: Not Applicable Sepsis Protocol: For patient's 13 years and over: Temp is 96.8 and below OR 101 and greater Pulse >90 BPM Resp >20/minute Acutely Altered Mental Status Are patient's symptoms suggestive of a new infection, such as: -Pneumonia -Skin, Soft Tissue -Endocarditis -UTI -Bone, Joint Infection -Implantable Device -Acute Abdominal Infection -Wound Infection -Meningitis -Blood Stream Catheter Infection -Unknown GI Complaint Exam Abdominal Pain Complaint/Exam Onset: Gradual Duration: 7days Symptoms Are: Still present Timing: Constant Initial Severity: Mild Current Severity: Moderate Location of Pain: Discrete and LLQ Character: Reports Dull and Aching Aggravating: Reports None Alleviating: Reports None Patient Rh Status: Unknown Abdominal Findings: Present Abdominal distention Differential Diagnoses: Bowel Obstruction, Constipation and Diverticulitis Review of Systems Review Of Systems Constitutional: Reports No symptoms Eyes: Reports No symptoms Ears, Nose, Mouth, Throat: Reports No symptoms Respiratory: Reports No symptoms Cardiac: Reports No symptoms GI: Reports Abdominal pain and Poor appetite : Reports No symptoms Musculoskeletal: Reports No symptoms Skin: Reports No symptoms Neurological: Reports No symptoms Endocrine: Reports No symptoms Hematologic/Lymphatic: Reports No symptoms All Other Systems: Reviewed and Negative [facility] Social History Smoking and tobacco status: Never smoker Female Reproductive History Menstrual Hx Hysterectomy: Yes Hx Tubal Ligation: No Physical Exam Physical Exam Appearance: Reports Well-appearing Ill-appearing: Not Applicable Pain Distress: Not Applicable Eyes: Reports TAINA, EOMI and Conjunctiva clear ENT: Reports Ears normal, Nose normal and Oropharynx normal Neck: Supple Respiratory: Reports Airway patent, Breath sounds clear and Breath sounds equal Cardiovascular: Reports RRR, Pulses normal, No rub and No murmur GI/: Reports Soft, Nontender and Tender Musculoskeletal: Reports Normal strength and ROM intact Skin: Reports Warm, Dry and Normal color Neurological: Reports Sensation intact, Motor intact, Reflexes intact, Cranial nerves intact, Alert and Oriented Psychiatric: Reports Affect appropriate, Mood appropriate and Anxious Interpretation Radiology Interpretation Radiology Interpretation By: Radiologist Radiology Results: Positive Exam Interpreted: CT Scan Re-Evaluation Re-Evaluation Time of Re-Evaluation: 19:18 Status: Improved Vital Signs Stable: Yes Pain Level: 0 Appearance: NAD Lungs: Clear Skin: Warm and Dry Neuro: Alert and Oriented X3 CV: RRR Critical Care Note Critical Care Note Total Critical Care Time (mins): 0 Course Course Hematology/Chemistry: 05/12/21 18:20 05/12/21 18:20 Orders, Labs, Meds: Lab Review 05/12/21 05/12/21 05/12/21 18:20 18:20 18:20 WBC 8.23 RBC 4.48 Hgb 13.7 Hct 40.0 MCV 89.3 MCH 30.6 MCHC 34.3 RDW Coeff of Asaf 16.8 H Plt Count 272 Immature Gran % (Auto) 0.2 Neut % (Auto) 64.6 Lymph % (Auto) 23.0 [place] % (Auto) 10.7 H Eos % (Auto) 1.1 Baso % (Auto) 0.4 Neut # (Auto) 5.3 Lymph # (Auto) 1.9 [place] # (Auto) 0.9 Eos # (Auto) 0.1 Baso # (Auto) 0.0 Immature Gran # (Auto) 0.0 ESR 18 Sodium 137.2 Potassium 3.53 Chloride 104.3 Carbon Dioxide 24.5 Anion Gap 11.93 BUN 12.6 Creatinine 0.56 L Estimated GFR (MDRD) 107.00 BUN/Creatinine Ratio 22.50 Glucose 136.7 H Lactic Acid 1.10 Calcium 9.24 Total Bilirubin 0.44 AST 29.3 ALT 17.7 Alkaline Phosphatase 93.2 Total Protein 7.47 Albumin 4.54 Globulin 2.93 Albumin/Globulin Ratio 1.54 Amylase 115.7 H Lipase 214.3 Procalcitonin 05/12/21 18:20 WBC RBC Hgb Hct MCV MCH MCHC RDW Coeff of Asaf Plt Count Immature Gran % (Auto) Neut % (Auto) Lymph % (Auto) [place] % (Auto) Eos % (Auto) Baso % (Auto) Neut # (Auto) Lymph # (Auto) [place] # (Auto) Eos # (Auto) Baso # (Auto) Immature Gran # (Auto) ESR Sodium Potassium Chloride Carbon Dioxide Anion Gap BUN Creatinine Estimated GFR (MDRD) BUN/Creatinine Ratio Glucose Lactic Acid Calcium Total Bilirubin AST ALT Alkaline Phosphatase Total Protein Albumin Globulin Albumin/Globulin Ratio Amylase Lipase Procalcitonin < 0.05 Orders Category Date Time Status EKG-(ED ONLY) Stat CARDIO 05/12/21 18:22 Ordered NPO REMINDER: IMAGING ONCE CARE 05/12/21 18:05 Completed ED IV/MEDIPORT/POWERPORT .ONCE EMERGENCY 05/12/21 18:04 Active AMYLASE Stat LAB 05/12/21 18:20 Completed BLOOD CULTURE (ED ONLY) Stat LAB 05/12/21 18:20 Received CBC W/ AUTO DIFF Stat LAB 05/12/21 18:20 Completed COMPREHENSIVE METABOLIC PANEL Stat LAB 05/12/21 18:20 Completed ESR Stat LAB 05/12/21 18:20 Completed LACTIC ACID Stat LAB 05/12/21 18:20 Completed LIPASE Stat LAB 05/12/21 18:20 Completed MISCELLANEOUS CULTURE Stat LAB 05/12/21 18:06 Uncollected PROCALCITONIN Stat LAB 05/12/21 18:20 Completed URINALYSIS C & S IF INDICATED Stat LAB 05/12/21 18:04 Uncollected 0.9 % Sodium Chloride [Saline Flush] MEDS 05/12/21 18:04 Active 1 syr IVF PRN PRN Dicyclomine Inj [Bentyl] MEDS 05/12/21 18:05 Discontinued 10 mg IM ONCE STA Morphine Sulfate [Morphine 2 mg/ml Vial] MEDS 05/12/21 18:05 Discontinued 2 mg IVP ONCE STA Ondansetron HCl/Pf [Zofran 4 mg/2 ml] MEDS 05/12/21 18:05 Discontinued 4 mg IVP ONCE STA Sodium Chloride 0.9% [Sodium Chloride] 1,000 ml MEDS 05/12/21 18:04 Di scontinued IV 125 mls/hr Sodium Chloride 0.9% [Sodium Chloride] 1,000 ml MEDS 05/12/21 18:17 Active IV 30 mls/hr CT ABDOMEN/PELVIS W CONTRAST Stat RADS 05/12/21 18:04 Completed Medications Generic Name Dose Route Start Last Admin Trade Name Freq PRN Reason Stop Dose Admin Sodium Chloride 1,000 mls @ 30 mls/hr 05/12/21 18:17 05/12/21 18:27 Sodium Chloride IV 05/14/21 03:23 30 mls/hr .[id number] STA Administration Sodium Chloride 1 syr 05/12/21 18:04 05/12/21 18:14 0.9% Sodium Chloride 10 Ml Disp.Syrin IVF 1 syr PRN PRN Administration To flush IV Discontinued Medications Generic Name Dose Route Start Last Admin Trade Name Freq PRN Reason Stop Dose Admin Dicyclomine HCl 10 mg 05/12/21 18:05 05/12/21 18:15 Dicyclomine Inj 20 Mg/2 Ml Ampul IM 05/12/21 18:06 20 mg ONCE STA Administration Sodium Chloride 1,000 mls @ 125 mls/hr 05/12/21 18:04 05/12/21 18:14 Sodium Chloride IV 05/13/21 03:03 125 mls/hr .Q8H STA Administration Morphine Sulfate 2 mg 05/12/21 18:05 05/12/21 18:14 Morphine Sulfate 2 Mg/Ml Vial IVP 05/12/21 18:06 2 mg ONCE STA Administration Ondansetron HCl 4 mg 05/12/21 18:05 05/12/21 18:14 Ondansetron Hcl/Pf 4 Mg/2 Ml Sdv IVP 05/12/21 18:06 4 mg ONCE STA Administration Vital Signs: Temp Pulse Resp BP Pulse Ox 05/12/21 17:58 96.8 F L 102 H 18 128/82 97 Discharge Plan Discharge Patient Disposition: ADMITTED INPATIENT Discharge Problem: Diverticulitis Prescriptions: No Action carvedilol 6.25 MG tablet 12.5 mg PO BID 0RF aspirin 325 MG tablet 81 mg PO DAILY 0RF loperamide [Anti-Diarrheal (loperamide)] 2 MG tablet 2 mg PO DAILY PRN (Reason: loose stools) 0RF spironolactone 25 MG tablet 12.5 mg PO DAILY 0RF alprazolam 0.5 MG tablet 0.5 mg PO BEDTIME PRN (Reason: for sleep) 0RF calcium carbonate 600 MG tablet 600 mg PO DAILY 0RF cyanocobalamin (vitamin B-12) [Vitamin B-12] 500 MCG tablet 500 mcg PO DAILY 0RF omeprazole 20 MG capsule,delayed release(DR/EC) 20 mg PO QDAC 0RF furosemide 20 MG tablet 40 mg PO BID 0RF multivitamin 1 CAP capsule 1 cap PO DAILY 0RF cholecalciferol (vitamin D3) [Vitamin D3] 400 UNIT tablet 400 unit PO DAILY 0RF vitamin E 400 UNIT capsule 400 unit PO DAILY 0RF Entresto 1 EACH tablet 1 tab PO BID 0RF Hydrocodone/Acetaminophen [[place] 5-325 Tablet] 1 EACH Tablet 5 - 325 mg PO BID PRN (Reason: Pain) 0RF orphenadrine citrate 100 mg Tablet Extended Release 100 mg PO BID 0RF loratadine 10 mg Tablet 10 mg PO DAILY 0RF sulfamethoxazole-trimethoprim [Bactrim DS] 800-160 mg tablet 1 tab PO BID Qty: 20 0RF metronidazole [Flagyl] 500 mg tablet 500 mg PO TID Qty: 14 0RF ondansetron HCl [Zofran] 4 mg tablet 4 mg PO Q8H PRN (Reason: nausea and vomiting) Qty: 10 0RF metronidazole [Flagyl] 500 mg Tablet 500 mg PO TID 0RF ciprofloxacin HCl [Cipro] 500 mg Tablet 500 mg PO BID 0RF ED Provider: LAURA ROMERO Condition: Fair Physician Progress Note: []
[2021-05-12 18:25] LABS: BASOPHILS % (AUTO) 0.4 % (0.0-3.0); EOSINOPHILS # (AUTO) 0.1 K/ul (0.0-0.7); EOSINOPHILS % (AUTO) 1.1 % (0.0-7.0); HEMOGLOBIN 13.7 g/dl (12.0-16.0); IMMATURE GRANULOCYTE % (AUTO) 0.2 % (0.0-5.0); LYMPHOCYTES # (AUTO) 1.9 K/uL (0.60-3.4); MEAN CORPUSCULAR HEMOGLOBIN 30.6 pg (27.0-31.0); MEAN CORPUSCULAR HGB CONC 34.3 (31.8-35.4); MEAN CORPUSCULAR VOLUME 89.3 fl (81.0-99.0); MONOCYTES # (AUTO) 0.9 K/uL (0.4-2.0); MONOCYTES % (AUTO) 10.7 (0-10); NEUTROPHILS # (AUTO) 5.3 K/ul (2.0-6.9); NEUTROPHILS % (AUTO) 64.6 % (42.2-75.2); PLATELET COUNT 272 10^3/uL (140-440); RDW COEFFICIENT OF VARIATION 16.8 % (11.6-14.8); RED BLOOD COUNT 4.48 10^6/ul (4.20-5.40); WHITE BLOOD COUNT 8.23 K/ul (4.6-10.2)
[2021-05-12 18:38] LABS: ALANINE AMINOTRANSFERASE 17.7 U/L (0-35); ALBUMIN 4.54 g/dL (3.5-5.0); ALKALINE PHOSPHATASE 93.2 U/L (53-141); AMYLASE 115.7 U/L (30-110); ASPARTATE AMINO TRANSFERASE 29.3 U/L (14-36); BILIRUBIN,TOTAL 0.44 mg/dL (0.2-1.3); BLOOD UREA NITROGEN 12.6 mg/dL (7-17); CALCIUM 9.24 mg/dL (8.4-10.2); CARBON DIOXIDE 24.5 mmol/L (22-30.0); CHLORIDE 104.3 mmol/L (98-107); CREATININE 0.56 mg/dL (0.60-1.30); GLUCOSE 136.7 mg/dL (74-106); LIPASE 214.3 U/L (23-300); POTASSIUM 3.53 mmol/L (3.5-5.1); SODIUM 137.2 mmol/L (134.5-145); TOTAL PROTEIN 7.47 g/dL (6.3-8.2)
[2021-05-12 18:59] LABS: ERYTHROCYTE SEDIMENTATION RATE 18 mm/hr (0-20)
--- NOTE | 2021-05-12 19:14 | CT ---
EXAM: CT scan abdomen pelvis with contrast HISTORY: Left lower quadrant pain COMPARISON: CT scan abdomen pelvis 07/22/2020 FINDINGS: Contiguous axial images obtained from the lung bases to the symphysis pubis following intr avenous contrast utilizing 3-mm collimation. Sagittal and coronal reconstructions were imaged and re viewed. The visualized lung bases are clear. Cardiac silhouette is enlarged without pericardial eff usion. Pacemaker leads are seen with the right atrium and ventricle. There is moderate sized hiatal hernia. Gallbladder is fluid filled without cholelithiasis... The common bile duct measures 8 mm. The pancreatic duct at the level of the pancreatic head measures 5.2 mm. No discrete pancreatic mass . The liver spleen and adrenal glands have normal enhanced CT appearance. Kidneys excrete contrast in a normal fashion bilaterally. Atherosclerotic changes are seen involving the aorta without aneury sm formation. Diverticuli are seen in the sigmoid colon with minimal pericolonic inflammatory change s suggesting mild diverticulitis . Bone windows reveals no evidence of lytic or blastic lesions. IMPRESSION: There is cardiomegaly without pericardial effusion. Hiatal hernia. Prominent common bile duct and pancreatic duct as described. No evidence of mass or choledocholithia sis.. Consider non emergent MRCP for further characterization.. Mild diverticulitis sigmoid colon. All CT scans are performed using dose optimization techniques as appropriate to the performed exam an d include at least one of the following: Automated exposure control, adjustment of the mA and/or kV according t o size, and the use of iterative reconstruction technique.
[2021-05-12] MEDS ORDERED: MORPHINE 2 MG/ML VIAL IVP PRN (19:22)
[2021-05-12] MEDS ORDERED: BENTYL IM PRN (19:22)
[2021-05-12] MEDS ORDERED: IMODIUM PO PRN (19:28)
[2021-05-12] MEDS ORDERED: LEVAQUIN 500 MG/100 ML D5W 500 MG/100 ML BAG IV SCH (19:30)
--- NOTE | 2021-05-12 19:41 | PCM ---
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 Dr Ray had treated her with cipro and flagyl with worsening LL pain without fever, chils, vomiting or blood in the stool. Review of Systems Constitutional: Reports Fatigue Eyes: Reports No symptoms Ears: Reports No symptoms Nose: Reports No symptoms Throat: Reports No symptoms Mouth: Reports No symptoms Respiratory: Reports No symptoms Cardiovascular: Reports No symptoms Gastrointestinal: Reports Abdominal pain Genitourinary: Reports No symptoms Neurological: Reports No symptoms Musculoskeletal: Reports No symptoms Skin: Reports No symptoms Immunology: Reports No symptoms Hematology: Reports No symptoms Endocrine: Reports No symptoms Psychiatric: Reports No symptoms Habits: Reports Tobacco use Allergies Allergies Allergy/AdvReac Type Severity Reaction Status Date / Time cefadroxil hydrate AdvReac Verified 07/22/20 07:39 [From [facility] [place]] [facility] Social History Smoking and tobacco status: Never smoker Medications Medications: Medications Generic Name Dose Route Start Last Admin Trade Name Freq PRN Reason Stop Dose Admin Alprazolam 0.5 mg 05/12/21 19:28 Alprazolam 0.5 Mg Tablet PO BEDTIME PRN Insomnia Carvedilol 12.5 mg 05/12/21 21:00 Carvedilol 6.25 Mg Tablet PO BID ARMANDO Dicyclomine HCl 10 mg 05/12/21 19:22 Dicyclomine Inj 20 Mg/2 Ml Ampul IM Q6HR PRN Abdominal Pain Enoxaparin Sodium 40 mg 05/13/21 09:00 Enoxaparin Sodium 40 Mg/0.4 Ml Syr SUBCUT DAILY ARMANDO Furosemide 40 mg 05/12/21 21:00 Furosemide 20 Mg Tablet PO BID ARMANDO Sodium Chloride 1,000 mls @ 30 mls/hr 05/12/21 18:17 05/12/21 18:27 Sodium Chloride IV 05/14/21 03:23 30 mls/hr .[id number] STA Administration Levofloxacin/Dextrose 500 mg in 100 mls @ 100 mls/hr 05/12/21 19:30 Levaquin 500 Mg/100 Ml D5w IV 05/15/21 19:29 DAILY [facility] Metronidazole 500 mg in 100 mls @ 100 mls/hr 05/13/21 00:00 Flagyl 500 Mg/100 Ml IV 05/16/21 00:00 Q6HR [facility] Loperamide HCl 2 mg 05/12/21 19:28 Loperamide Hcl 2 Mg Tablet PO DAILY PRN Diarrhea Morphine Sulfate 2 mg 05/12/21 19:22 Morphine Sulfate 2 Mg/Ml Vial IVP Q4H PRN Abdominal Pain Non-Formulary Medication 81 mg 05/13/21 09:00 Aspirin PO DAILY [facility] Omeprazole 20 mg 05/13/21 06:30 Omeprazole 20 Mg Capsule. PO QDAC [facility] Ondansetron HCl 4 mg 05/12/21 19:22 Ondansetron Hcl/Pf 4 Mg/2 Ml Sdv IVP Q6HR PRN Nausea / Vomiting Sacubitril/Valsartan 1 each 05/12/21 21:00 Sacubitril/Valsartan 1 Each Tablet PO BID [facility] Sodium Chloride 1 syr 05/12/21 18:04 05/12/21 18:14 0.9% Sodium Chloride 10 Ml Disp.Syrin IVF 1 syr PRN PRN Administration To flush IV Spironolactone 12.5 mg 05/13/21 09:00 Spironolactone 25 Mg Tablet PO DAILY [facility] Body Composition Height: 5 ft 3 in Weight: 131 lb 9.6 oz Body Mass Index (BMI): 23.3 Vital Signs Temperature: 96.8 F Pulse Rate: 102 Respiratory Rate: 18 Blood Pressure: 128/82 O2 Sat by Pulse Oximetry: 97 Physical Examination Appearance: Reports Well-appearing Ill-appearing: None Pain Distress: Moderate Eyes: Reports TAINA, EOMI and Conjunctiva clear ENT: Reports Ears normal, Nose normal and Oropharynx normal Neck: Supple Respiratory: Reports Airway patent, Breath sounds clear and Breath sounds equal Cardiovascular: Reports RRR, Pulses normal, No rub and No murmur GI/: Reports Soft, Bowel sounds normal and Tender Musculoskeletal: Reports Normal strength, ROM intact, No edema and No calf tenderness Skin: Reports Warm, Dry and Normal color Neurological: Reports Sensation intact, Motor intact, Reflexes intact, Cranial nerves intact, Alert and Oriented Psychiatric: Reports Affect appropriate and Mood appropriate Lab/Tests/Diagnostic Imaging Lab/Tests/Diagnostic Imaging: Lab Review 05/12/21 05/12/21 05/12/21 18:20 18:20 18:20 WBC 8.23 RBC 4.48 Hgb 13.7 Hct 40.0 MCV 89.3 MCH 30.6 MCHC 34.3 RDW Coeff of Asaf 16.8 H Plt Count 272 Immature Gran % (Auto) 0.2 Neut % (Auto) 64.6 Lymph % (Auto) 23.0 [place] % (Auto) 10.7 H Eos % (Auto) 1.1 Baso % (Auto) 0.4 Neut # (Auto) 5.3 Lymph # (Auto) 1.9 [place] # (Auto) 0.9 Eos # (Auto) 0.1 Baso # (Auto) 0.0 Immature Gran # (Auto) 0.0 ESR 18 Sodium 137.2 Potassium 3.53 Chloride 104.3 Carbon Dioxide 24.5 Anion Gap 11.93 BUN 12.6 Creatinine 0.56 L Estimated GFR (MDRD) 107.00 BUN/Creatinine Ratio 22.50 Glucose 136.7 H Lactic Acid 1.10 Calcium 9.24 Total Bilirubin 0.44 AST 29.3 ALT 17.7 Alkaline Phosphatase 93.2 Total Protein 7.47 Albumin 4.54 Globulin 2.93 Albumin/Globulin Ratio 1.54 Amylase 115.7 H Lipase 214.3 Procalcitonin 05/12/21 18:20 WBC RBC Hgb Hct MCV MCH MCHC RDW Coeff of Asaf Plt Count Immature Gran % (Auto) Neut % (Auto) Lymph % (Auto) [place] % (Auto) Eos % (Auto) Baso % (Auto) Neut # (Auto) Lymph # (Auto) [place] # (Auto) Eos # (Auto) Baso # (Auto) Immature Gran # (Auto) ESR Sodium Potassium Chloride Carbon Dioxide Anion Gap BUN Creatinine Estimated GFR (MDRD) BUN/Creatinine Ratio Glucose Lactic Acid Calcium Total Bilirubin AST ALT Alkaline Phosphatase Total Protein Albumin Globulin Albumin/Globulin Ratio Amylase Lipase Procalcitonin < 0.05 Orders Category Date Time Status ADMIT PATIENT INPATIENT .TO MEDSURG (MONITORED BED) ADMISSION 05/12/21 19:21 Active EKG-(ED ONLY) Stat CARDIO 05/12/21 18:22 Ordered ACTIVITY .BR with BRP CARE 05/12/21 19:22 Active INTAKE & OUTPUT Q8HR CARE 05/12/21 19:23 Active IP: INSERT SALINE LOCK ONCE CARE 05/12/21 19:23 Active NPO REMINDER: IMAGING ONCE CARE 05/12/21 18:05 Completed TELEMETRY MONITORING TELE CARE 05/12/21 19:21 Active VITAL SIGNS Q8HR CARE 05/12/21 19:23 Active NOTHING BY MOUTH DIETARY 05/12/21 Breakfast Ordered ED IV/MEDIPORT/POWERPORT .ONCE EMERGENCY 05/12/21 18:04 Active AMYLASE Stat LAB 05/12/21 18:20 Completed BLOOD CULTURE (ED ONLY) Stat LAB 05/12/21 18:20 Received CBC W/ AUTO DIFF DAILY@0600 LAB 05/13/21 06:00 Ordered CBC W/ AUTO DIFF DAILY@0600 LAB 05/14/21 06:00 Ordered CBC W/ AUTO DIFF Stat LAB 05/12/21 18:20 Completed COMPREHENSIVE METABOLIC PANEL DAILY@0600 LAB 05/13/21 06:00 Ordered COMPREHENSIVE METABOLIC PANEL DAILY@0600 LAB 05/14/21 06:00 Ordered COMPREHENSIVE METABOLIC PANEL Stat LAB 05/12/21 18:20 Completed ESR Stat LAB 05/12/21 18:20 Completed LACTIC ACID Stat LAB 05/12/21 18:20 Completed LIPASE Stat LAB 05/12/21 18:20 Completed MISCELLANEOUS CULTURE Stat LAB 05/12/21 18:06 Uncollected PROCALCITONIN Stat LAB 05/12/21 18:20 Completed URINALYSIS C & S IF INDICATED Stat LAB 05/12/21 18:04 Uncollected 0.9 % Sodium Chloride [Saline Flush] MEDS 05/12/21 18:04 Active 1 syr IVF PRN PRN Alprazolam [Xanax] MEDS 05/12/21 19:28 Ordered 0.5 mg PO BEDTIME PRN Carvedilol [Coreg] MEDS 05/12/21 21:00 Ordered 12.5 mg PO BID Dicyclomine Inj [Bentyl] MEDS 05/12/21 18:05 Discontinued 10 mg IM ONCE STA Dicyclomine Inj [Bentyl] MEDS 05/12/21 19:22 Ordered 10 mg IM Q6HR PRN Enoxaparin Sodium [Lovenox] MEDS 05/13/21 09:00 Ordered 40 mg SUBCUT DAILY Furosemide [Lasix Tab] MEDS 05/12/21 21:00 Ordered 40 mg PO BID Levofloxacin/D5w [Levaquin 500 mg/100 ml D5w] MEDS 05/12/21 19:30 Ordered 500 mg in 100 ml IV DAILY Loperamide HCl [Imodium] MEDS 05/12/21 19:28 Ordered 2 mg PO DAILY PRN Metronidazole/Sodium Chloride [Flagyl 500 mg/100 ml] MEDS 05/13/21 00:00 Ordered 500 mg in 100 ml IV Q6HR Morphine Sulfate [Morphine 2 mg/ml Vial] MEDS 05/12/21 18:05 Discontinued 2 mg IVP ONCE STA Morphine Sulfate [Morphine 2 mg/ml Vial] MEDS 05/12/21 19:22 Ordered 2 mg IVP Q4H PRN Omeprazole [Prilosec] MEDS 05/13/21 06:30 Ordered 20 mg PO QDAC Ondansetron HCl/Pf [Zofran 4 mg/2 ml] MEDS 05/12/21 18:05 Discontinued 4 mg IVP ONCE STA Ondansetron HCl/Pf [Zofran 4 mg/2 ml] MEDS 05/12/21 19:22 Ordered 4 mg IVP Q6HR PRN Sacubitril/Valsartan [Entresto 24 mg-26 mg Tablet] MEDS 05/12/21 21:00 Ordered 1 each PO BID Sodium Chloride 0.9% [Sodium Chloride] 1,000 ml MEDS 05/12/21 18:04 Discontinued IV 125 mls/hr Sodium Chloride 0.9% [Sodium Chloride] 1,000 ml MEDS 05/12/21 18:17 Active IV 30 mls/hr Spironolactone [Aldactone] MEDS 05/13/21 09:00 Ordered 12.5 mg PO DAILY aspirin MEDS 05/13/21 09:00 Ordered 81 mg PO DAILY RESUSCITATION STATUS Routine OTHERS 05/12/21 19:[address] ABDOMEN/PELVIS W CONTRAST Stat RADS 05/12/21 18:04 Completed Medications Generic Name Dose Route Start Last Admin Trade Name Freq PRN Reason Stop Dose Admin Alprazolam 0.5 mg 05/12/21 19:28 Alprazolam 0.5 Mg Tablet PO BEDTIME PRN Insomnia Carvedilol 12.5 mg 05/12/21 21:00 Carvedilol 6.25 Mg Tablet PO BID ARMANDO Dicyclomine HCl 10 mg 05/12/21 19:22 Dicyclomine Inj 20 Mg/2 Ml Ampul IM Q6HR PRN Abdominal Pain Enoxaparin Sodium 40 mg 05/13/21 09:00 Enoxaparin Sodium 40 Mg/0.4 Ml Syr SUBCUT DAILY [facility] Furosemide 40 mg 05/12/21 21:00 Furosemide 20 Mg Tablet PO BID [facility] Sodium Chloride 1,000 mls @ 30 mls/hr 05/12/21 18:17 05/12/21 18:27 Sodium Chloride IV 05/14/21 03:23 30 mls/hr .[id number] STA Administration Levofloxacin/Dextrose 500 mg in 100 mls @ 100 mls/hr 05/12/21 19:30 Levaquin 500 Mg/100 Ml D5w IV 05/15/21 19:29 DAILY [facility] Metronidazole 500 mg in 100 mls @ 100 mls/hr 05/13/21 00:00 Flagyl 500 Mg/100 Ml IV 05/16/21 00:00 Q6HR [facility] Loperamide HCl 2 mg 05/12/21 19:28 Loperamide Hcl 2 Mg Tablet PO DAILY PRN Diarrhea Morphine Sulfate 2 mg 05/12/21 19:22 Morphine Sulfate 2 Mg/Ml Vial IVP Q4H PRN Abdominal Pain Non-Formulary Medication 81 mg 05/13/21 09:00 Aspirin PO DAILY [facility] Omeprazole 20 mg 05/13/21 06:30 Omeprazole 20 Mg Capsule.Dr PO QDAC [facility] Ondansetron HCl 4 mg 05/12/21 19:22 Ondansetron Hcl/Pf 4 Mg/2 Ml Sdv IVP Q6HR PRN Nausea / Vomiting Sacubitril/Valsartan 1 each 05/12/21 21:00 Sacubitril/Valsartan 1 Each Tablet PO BID [facility] Sodium Chloride 1 syr 05/12/21 18:04 05/12/21 18:14 0.9% Sodium Chloride 10 Ml Disp.Syrin IVF 1 syr PRN PRN Administration To flush IV Spironolactone 12.5 mg 05/13/21 09:00 Spironolactone 25 Mg Tablet PO DAILY [facility] Discontinued Medications Generic Name Dose Route Start Last Admin Trade Name Freq PRN Reason Stop Dose Admin Dicyclomine HCl 10 mg 05/12/21 18:05 05/12/21 18:15 Dicyclomine Inj 20 Mg/2 Ml Ampul IM 05/12/21 18:06 20 mg ONCE STA Administration Sodium Chloride 1,000 mls @ 125 mls/hr 05/12/21 18:04 05/12/21 18:14 Sodium Chloride IV 05/13/21 03:03 125 mls/hr .Q8H STA Administration Morphine Sulfate 2 mg 05/12/21 18:05 05/12/21 18:14 Morphine Sulfate 2 Mg/Ml Vial IVP 05/12/21 18:06 2 mg ONCE STA Administration Ondansetron HCl 4 mg 05/12/21 18:05 05/12/21 18:14 Ondansetron Hcl/Pf 4 Mg/2 Ml Sdv IVP 05/12/21 18:06 4 mg ONCE STA Administration Assessment (1) Diverticulitis: Status: Acute Code(s): K57.92 - Diverticulitis of intestine, part unspecified, without perforation or abscess without bleeding SNOMED Code(s): 227581791 Assessment: her ct does not reveal any perforation or abscess. 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 i offered her transfer to [facility] due to her cardiomyopathy but she declines. I think she can be admitted her with serial exams and monitoring of labs. Plan Plan: she has failed outpatient therapy. will start iv antbx and keep npo. check labs in am and monitor for fever or worsening abd pain.
[2021-05-12] MEDS ORDERED: LEVAQUIN ONE (19:46)
[2021-05-12 20:12] LABS: BORDETELLA PARAPERTUSSIS (PCR) NOT DETECTED (NOT DETECT); BORDETELLA PERTUSSIS (PCR) NOT DETECTED (NOT DETECT); CHLAMYDIA PNEUMONIAE (PCR) NOT DETECTED (NOT DETECT); CORONAVIRUS 229E (PCR) NOT DETECTED (NOT DETECT); CORONAVIRUS HKU1 (PCR) NOT DETECTED (NOT DETECT); CORONAVIRUS NL63 (PCR) NOT DETECTED (NOT DETECT); CORONAVIRUS OC43 (PCR) NOT DETECTED (NOT DETECT); HUMAN METAPNEUMOVIRUS (PCR) NOT DETECTED (NOT DETECT); HUMAN RHINOVIRUS/ENTEROV (PCR) NOT DETECTED (NOT DETECT); INFLUENZA B (PCR) NOT DETECTED (NOT DETECT); MYCOPLASMA PNEUMONIAE (PCR) NOT DETECTED (NOT DETECT); PARAINFLUENZA VIRUS 1 (PCR) NOT DETECTED (NOT DETECT); PARAINFLUENZA VIRUS 2 (PCR) NOT DETECTED (NOT DETECT); PARAINFLUENZA VIRUS 3 (PCR) NOT DETECTED (NOT DETECT); PARAINFLUENZA VIRUS 4 (PCR) NOT DETECTED (NOT DETECT); RESPIRATORY SYNCYTIAL V (PCR) NOT DETECTED (NOT DETECT); SARS_COV_2 (PCR) NOT DETECTED (NOT DETECT)
[2021-05-12 20:19] LABS: BILIRUBIN,URINE Negative (NEGATIVE); CLARITY,URINE Clear (CLEAR); COLOR,URINE Yellow (YELLOW); GLUCOSE, URINE (UA) Negative (NEGATIVE); KETONES,URINE Negative (NEGATIVE); LEUKOCYTE ESTERASE ,URINE Negative (NEGATIVE); NITRITE,URINE Negative (NEGATIVE); PH,URINE 5.5 (5-9); PROTEIN,URINE Negative (NEGATIVE); URINE, BLOOD Trace-intact (NEGATIVE); UROBILINOGEN,URINE 0.2 (0.2)
[2021-05-12 20:25] LABS: SQUAMOUS EPITHELIAL CELL,UR 0-2 (0-5); URINE RBC, MICROSCOPIC 0-2 (0-2)
[2021-05-12 20:57] LABS: ADENOVIRUS (PCR) NOT DETECTED (NOT DETECT)
[2021-05-12] MEDS ORDERED: LASIX TAB PO SCH (21:00)
[2021-05-12] MEDS ORDERED: COREG PO SCH (21:00)
[2021-05-12 21:53] VITALS: BMI 23.7
[2021-05-12] MEDS: ENTRESTO 24 MG-26 MG TABLET PO SCH (22:17)
[2021-05-12] MEDS: FLAGYL 500 MG/100 ML 500 MG/100 ML BAG IV SCH (23:21)
[2021-05-12] MEDS: ZOFRAN 4 MG/2 ML IVP PRN (23:32)
[2021-05-13] MEDS: XANAX PO PRN ×2 (01:48→23:18)
[2021-05-13 05:19] LABS: BASOPHILS % (AUTO) 0.4 % (0.0-3.0); EOSINOPHILS # (AUTO) 0.1 K/ul (0.0-0.7); EOSINOPHILS % (AUTO) 0.8 % (0.0-7.0); IMMATURE GRANULOCYTE % (AUTO) 0.4 % (0.0-5.0); LYMPHOCYTES # (AUTO) 1.2 K/uL (0.60-3.4); LYMPHOCYTES % (AUTO) 15.3 (10.0-50.0); MEAN CORPUSCULAR HEMOGLOBIN 31.3 pg (27.0-31.0); MEAN CORPUSCULAR VOLUME 89.3 fl (81.0-99.0); MONOCYTES # (AUTO) 0.5 K/uL (0.4-2.0); MONOCYTES % (AUTO) 5.9 (0-10); NEUTROPHILS % (AUTO) 77.2 % (42.2-75.2); PLATELET COUNT 280 10^3/uL (140-440); RDW COEFFICIENT OF VARIATION 16.6 % (11.6-14.8); RED BLOOD COUNT 4.48 10^6/ul (4.20-5.40); WHITE BLOOD COUNT 7.82 K/ul (4.6-10.2)
[2021-05-13 05:31] LABS: CARBON DIOXIDE 26.4 mmol/L (22-30.0); CHLORIDE 102.9 mmol/L (98-107); POTASSIUM 3.6 mmol/L (3.5-5.1)
[2021-05-13 05:32] LABS: ALBUMIN 4.5 g/dL (3.5-5.0); ALKALINE PHOSPHATASE 84.2 U/L (53-141); BILIRUBIN,TOTAL 0.57 mg/dL (0.2-1.3); CALCIUM 9.31 mg/dL (8.4-10.2); CREATININE 0.58 mg/dL (0.60-1.30); GLUCOSE 154.1 mg/dL (74-106); TOTAL PROTEIN 7.45 g/dL (6.3-8.2)
[2021-05-13] MEDS: FLAGYL 500 MG/100 ML 500 MG/100 ML BAG IV SCH ×4 (05:46→23:09)
[2021-05-13] MEDS ORDERED: PRILOSEC PO SCH (06:30)
[2021-05-13] MEDS ORDERED: LASIX TAB PO SCH ×3 (07:30→17:00)
--- NOTE | 2021-05-13 08:28 | PCM.PROG ---
Date Seen by Provider: 05/13/21 Time Seen by Provider: 08:26 Subjective: She reports less abdominal pain. Passed some gas. No nausea,vomiting , chest pain, swelling, dyspnea, or chills Pt questions her BP meds as she has purposefully lost 10 lbs in about 2 mos having reduced her sugar intake at the request of Dr. Ray - her numbers have been lower recently but she hasn,t been back to the office to discuss She is currently on a reduced calorie diet awaiting further med orders for type two DM recently diagnosed . With a hx of IBS where she has mostly loose stools she is reluctant to start metformin She reports taking lasix only once daily in the morning and she has been taking 1/2 of her carvediolol bid instead of 12.5 mg bid She feels like her bp is low this morning and has experienced that recently since loosing weight Discussed plan with patient SBAR with Dr Gibbs at mid - morning shift change Objective: Vitals: T=97.2 F, P=79, R=16, BP=98/59, SPO2=96 HEENT: [No icterus , throat clear , mouth dry, ] Neck: [Supple ] Lungs: [ clear bilaterally ] CVS: [regular rate and rhythm no murmur ] Abdomen: [not distended, slight but less tenderness reported by patient at LLQ. No rebound or rigidity BS are hyperactive she reports passing some gas since being in the ED ] Extremities: [no edema to the legs ] Neurological: [alert and oriented times three ] Skin: [dry , no rash ] Lab/Tests/Diagnostic Imaging: [ CT - diverticulitis no abcess or perforation ] (1) Diverticulitis: Status: Acute Code(s): K57.92 - Diverticulitis of intestine, part unspecified, without perforation or abscess without bleeding SNOMED Code(s): 387511777 Plan: 1.Dicyclomine IM - will D/C 2. Hold Lasix this am resume pm today at 40mg then resume daily am on Friday daily instead of 40mg bid due to BP and I &O 3.Hold Ca Carbonate 4.DC PO Omeprazole add pantoprazole 40 mg IV QD 5 Hold loperamide 2mg 6 Carvedilol reduce to 6.25mg PO with sip q 12 hr due to BP 7. With some abdomen tenderness will continue npo 8.Increase NS infusion from 30ml/hr to 60ml/hr for 1 liter then reassess fluid orders 9.When ready to start diet suggest low fat low sodium consistent carbohydrates 10.VS q 4 hrs 11.Ambulate with assistance / up in chair - no ambulation if systolic <110mmg HG 12.I & O q 4hrs 13.Hold am Entresto due to bp resume this pm 14.Continue spironolactone 12.5 mg am daily
[2021-05-13] MEDS ORDERED: COREG PO SCH ×3 (08:30→17:00)
[2021-05-13] MEDS ORDERED: SODIUM CHLORIDE 1,000 ML IV STA (09:08)
[2021-05-13] MEDS: PROTONIX IV IVP SCH (10:34)
[2021-05-13] MEDS: ALDACTONE PO SCH (10:34)
[2021-05-13] MEDS: ASPIRIN CHEWABLE PO SCH (10:34)
[2021-05-13] MEDS: COREG PO SCH ×2 (10:34→17:31)
[2021-05-13] MEDS: LOVENOX SUBCUT SCH (10:41)
[2021-05-13] MEDS: ENTRESTO 24 MG-26 MG TABLET PO SCH ×2 (10:42→20:16)
[2021-05-13] MEDS ORDERED: LASIX TAB PO ONE (17:00)
[2021-05-13] MEDS: ZOFRAN 4 MG/2 ML IVP PRN (17:48)
[2021-05-13] MEDS: TYLENOL PO PRN (20:16)
[2021-05-13] MEDS ORDERED: LEVAQUIN 500 MG/100 ML D5W 500 MG/100 ML BAG IV SCH (21:00)
[2021-05-13] MEDS ORDERED: SODIUM CHLORIDE 1,000 ML IV SCH (22:00)
[2021-05-14] MEDS: FLAGYL 500 MG/100 ML 500 MG/100 ML BAG IV SCH ×2 (05:08→13:58)
[2021-05-14 05:28] LABS: BASOPHILS % (AUTO) 0.4 % (0.0-3.0); EOSINOPHILS # (AUTO) 0.1 K/ul (0.0-0.7); EOSINOPHILS % (AUTO) 1.7 % (0.0-7.0); HEMATOCRIT 38.4 % (37.0-47.0); IMMATURE GRANULOCYTE % (AUTO) 0.4 % (0.0-5.0); LYMPHOCYTES # (AUTO) 1.8 K/uL (0.60-3.4); MEAN CORPUSCULAR HEMOGLOBIN 30.6 pg (27.0-31.0); MEAN CORPUSCULAR HGB CONC 33.9 (31.8-35.4); MEAN CORPUSCULAR VOLUME 90.4 fl (81.0-99.0); MONOCYTES # (AUTO) 0.6 K/uL (0.4-2.0); NEUTROPHILS # (AUTO) 4.3 K/ul (2.0-6.9); NEUTROPHILS % (AUTO) 62.5 % (42.2-75.2); PLATELET COUNT 268 10^3/uL (140-440); RDW COEFFICIENT OF VARIATION 16.8 % (11.6-14.8); RED BLOOD COUNT 4.25 10^6/ul (4.20-5.40); WHITE BLOOD COUNT 6.89 K/ul (4.6-10.2)
[2021-05-14] MEDS: TYLENOL PO PRN (05:31)
[2021-05-14 05:43] LABS: ALANINE AMINOTRANSFERASE 16.4 U/L (0-35); ALBUMIN 4.02 g/dL (3.5-5.0); ALKALINE PHOSPHATASE 74.9 U/L (53-141); ASPARTATE AMINO TRANSFERASE 27.3 U/L (14-36); BILIRUBIN,TOTAL 0.53 mg/dL (0.2-1.3); BLOOD UREA NITROGEN 10.3 mg/dL (7-17); CALCIUM 8.5 mg/dL (8.4-10.2); CARBON DIOXIDE 24.4 mmol/L (22-30.0); CHLORIDE 104.3 mmol/L (98-107); CREATININE 0.53 mg/dL (0.60-1.30); GLUCOSE 118.8 mg/dL (74-106); POTASSIUM 3.29 mmol/L (3.5-5.1); SODIUM 138.4 mmol/L (134.5-145); TOTAL PROTEIN 6.87 g/dL (6.3-8.2)
[2021-05-14] MEDS ORDERED: LASIX TAB PO SCH ×2 (06:30)
[2021-05-14] MEDS: ALDACTONE PO SCH (10:10)
[2021-05-14] MEDS: ASPIRIN CHEWABLE PO SCH (10:12)
[2021-05-14] MEDS: COREG PO SCH (10:12)
[2021-05-14] MEDS: ENTRESTO 24 MG-26 MG TABLET PO SCH (10:13)
[2021-05-14] MEDS: LOVENOX SUBCUT SCH (10:17)
[2021-05-14] MEDS: PROTONIX IV IVP SCH (10:32)
[2021-05-14 13:34] VITALS: BP 113/68; TEMP 97.8
--- NOTE | 2021-05-15 09:11 | PCM.DC ---
Final Diagnosis: Diverticulitis - resolving. Admitted with 05/12/21 with diverticulitis Physical Exam Appearance: Well-appearing Ill-appearing: None Pain Distress: None Eyes: TAINA ENT: Oropharynx normal Neck: Supple Respiratory: Airway patent and Breath sounds clear Cardiovascular: RRR and Pulses normal GI/: Soft and Nontender Musculoskeletal: Normal strength and ROM intact Skin: Warm and Dry Neurological: Sensation intact and Motor intact Psychiatric: Affect appropriate and Mood appropriate (1) Diverticulitis: Status: Acute Code(s): K57.92 - Diverticulitis of intestine, part unspecified, without perforation or abscess without bleeding SNOMED Code(s): 853796059 Reason for Hospitalization: Failed 2 d of outpatient tx with abx started by PCP, abd pain, nausea. Prognosis/Condition at Discharge: Good, stable. Medications at Discharge: Ambulatory Orders Medication Instructions Recorded alprazolam 0.5 mg tablet 0.5 mg PO BEDTIME PRN 12/01/17 aspirin 325 mg tablet 81 mg PO DAILY 12/01/17 calcium carbonate 600 mg calcium 600 mg PO DAILY 12/01/17 (1,500 mg) tablet carvedilol 6.25 mg tablet 12.5 mg PO BID 12/01/17 cholecalciferol (vitamin D3) 10 400 unit PO DAILY 12/01/17 mcg (400 unit) tablet (Vitamin D3) cyanocobalamin (vitamin B-12) 500 500 mcg PO DAILY 12/01/17 mcg tablet (Vitamin B-12) furosemide 20 mg tablet 20 mg PO BID 12/01/17 loperamide 2 mg tablet 2 mg PO DAILY PRN 12/01/17 (Anti-Diarrheal (loperamide)) multivitamin 1 cap PO DAILY 12/01/17 omeprazole 20 mg capsule,delayed 20 mg PO QDAC 12/01/17 release sacubitril 24 mg-valsartan 26 mg 1 tab PO BID 12/01/17 tablet (Entresto) spironolactone 25 mg tablet 12.5 mg PO DAILY 12/01/17 vitamin E 400 unit capsule 400 unit PO DAILY 12/01/17 Hydrocodone/Acetaminophen [Mobile 5 - 325 mg PO BID PRN 08/04/18 5-325 Tablet] loratadine 10 mg tablet 10 mg PO DAILY 07/22/20 orphenadrine citrate 100 mg 100 mg PO BID 07/22/20 tablet,extended release sulfamethoxazole 800 1 tab PO BID #20 tab 07/22/20 mg-trimethoprim 160 mg tablet (Bactrim DS) ciprofloxacin HCl 500 mg tablet 500 mg PO BID 05/12/21 (Cipro) metronidazole 500 mg tablet 500 mg PO TID 05/12/21 ondansetron 4 mg disintegrating 4 mg PO Q6H PRN #30 tab 05/14/21 tablet potassium chloride 10 mEq 10 meq PO DAILY #30 cap 05/14/21 capsule,extended release Lab/Diagnostics: Laboratory Tests 05/12/21 05/12/21 05/12/21 18:20 18:20 18:20 WBC 8.23 RBC 4.48 Hgb 13.7 Hct 40.0 MCV 89.3 MCH 30.6 MCHC 34.3 RDW Coeff of Asaf 16.8 H Plt Count 272 Immature Gran % (Auto) 0.2 Neut % (Auto) 64.6 Lymph % (Auto) 23.0 [place] % (Auto) 10.7 H Eos % (Auto) 1.1 Baso % (Auto) 0.4 Neut # (Auto) 5.3 Lymph # (Auto) 1.9 [place] # (Auto) 0.9 Eos # (Auto) 0.1 Baso # (Auto) 0.0 Immature Gran # (Auto) 0.0 ESR 18 Sodium 137.2 Potassium 3.53 Chloride 104.3 Carbon Dioxide 24.5 Anion Gap 11.93 BUN 12.6 Creatinine 0.56 L Estimated GFR (MDRD) 107.00 BUN/Creatinine Ratio 22.50 Glucose 136.7 H Hemoglobin A1c Lactic Acid 1.10 Calcium 9.24 Total Bilirubin 0.44 AST 29.3 ALT 17.7 Alkaline Phosphatase 93.2 Total Protein 7.47 Albumin 4.54 Globulin 2.93 Albumin/Globulin Ratio 1.54 Amylase 115.7 H Lipase 214.3 Procalcitonin Urine Color Urine Clarity Urine pH Ur Specific [place] Urine Protein Urine Glucose (UA) Urine Ketones Urine Blood Urine Nitrite Urine Bilirubin Urine Urobilinogen Ur Leukocyte Esterase Urine Microscopic RBC Ur Squamous Epith Cells Adenovirus (PCR) B. pertussis DNA (PCR) B.parapertussis DNA PCR C. pneumoniae DNA (PCR) Coronavirus OC43 (PCR) Coronavirus HKU1 (PCR) Coronavirus 229E (PCR) Coronavirus NL63 (PCR) Human Metapneumovir PCR Influenza Type A (PCR) Influenza B (RT-PCR) M. pneumoniae (PCR) Parainfluenza 1 (PCR) Parainfluenza 2 (PCR) Parainfluenza 3 (PCR) Parainfluenza 4 (PCR) RSV (PCR) Entero/Rhino (PCR) SARS-CoV-2 (PCR) 05/12/21 05/12/21 05/12/21 18:20 19:00 20:05 WBC RBC Hgb Hct MCV MCH MCHC RDW Coeff of Asaf Plt Count Immature Gran % (Auto) Neut % (Auto) Lymph % (Auto) [place] % (Auto) Eos % (Auto) Baso % (Auto) Neut # (Auto) Lymph # (Auto) [place] # (Auto) Eos # (Auto) Baso # (Auto) Immature Gran # (Auto) ESR Sodium Potassium Chloride Carbon Dioxide Anion Gap BUN Creatinine Estimated GFR (MDRD) BUN/Creatinine Ratio Glucose Hemoglobin A1c Lactic Acid Calcium Total Bilirubin AST ALT Alkaline Phosphatase Total Protein Albumin Globulin Albumin/Globulin Ratio Amylase Lipase Procalcitonin < 0.05 Urine Color Yellow Urine Clarity Clear Urine pH 5.5 Ur Specific [place] <=1.005 Urine Protein Negative Urine Glucose (UA) Negative Urine Ketones Negative Urine Blood Trace-intact H Urine Nitrite Negative Urine Bilirubin Negative Urine Urobilinogen 0.2 Ur Leukocyte Esterase Negative Urine Microscopic RBC 0-2 Ur Squamous Epith Cells 0-2 Adenovirus (PCR) Not detected B. pertussis DNA (PCR) Not detected B.parapertussis DNA PCR Not detected C. pneumoniae DNA (PCR) Not detected Coronavirus OC43 (PCR) Not detected Coronavirus HKU1 (PCR) Not detected Coronavirus 229E (PCR) Not detected Coronavirus NL63 (PCR) Not detected Human Metapneumovir PCR Not detected Influenza Type A (PCR) Not detected Influenza B (RT-PCR) Not detected M. pneumoniae (PCR) Not detected Parainfluenza 1 (PCR) Not detected Parainfluenza 2 (PCR) Not detected Parainfluenza 3 (PCR) Not detected Parainfluenza 4 (PCR) Not detected RSV (PCR) Not detected Entero/Rhino (PCR) Not detected SARS-CoV-2 (PCR) Not detected 05/13/21 05/13/21 05/13/21 04:55 04:55 04:55 WBC 7.82 RBC 4.48 Hgb 14.0 Hct 40.0 MCV 89.3 MCH 31.3 H MCHC 35.0 RDW Coeff of Asaf 16.6 H Plt Count 280 Immature Gran % (Auto) 0.4 Neut % (Auto) 77.2 H Lymph % (Auto) 15.3 [place] % (Auto) 5.9 Eos % (Auto) 0.8 Baso % (Auto) 0.4 Neut # (Auto) 6.0 Lymph # (Auto) 1.2 [place] # (Auto) 0.5 Eos # (Auto) 0.1 Baso # (Auto) 0.0 Immature Gran # (Auto) 0.0 ESR Sodium 138.0 Potassium 3.60 Chloride 102.9 Carbon Dioxide 26.4 Anion Gap 12.30 BUN 11.0 Creatinine 0.58 L Estimated GFR (MDRD) 103.00 BUN/Creatinine Ratio 18.96 Glucose 154.1 H Hemoglobin A1c 6.93 H Lactic Acid Calcium 9.31 Total Bilirubin 0.57 AST 31.0 ALT 18.0 Alkaline Phosphatase 84.2 Total Protein 7.45 Albumin 4.50 Globulin 2.95 Albumin/Globulin Ratio 1.52 Amylase Lipase Procalcitonin Urine Color Urine Clarity Urine pH Ur Specific [place] Urine Protein Urine Glucose (UA) Urine Ketones Urine Blood Urine Nitrite Urine Bilirubin Urine Urobilinogen Ur Leukocyte Esterase Urine Microscopic RBC Ur Squamous Epith Cells Adenovirus (PCR) B. pertussis DNA (PCR) B.parapertussis DNA PCR C. pneumoniae DNA (PCR) Coronavirus OC43 (PCR) Coronavirus HKU1 (PCR) Coronavirus 229E (PCR) Coronavirus NL63 (PCR) Human Metapneumovir PCR Influenza Type A (PCR) Influenza B (RT-PCR) M. pneumoniae (PCR) Parainfluenza 1 (PCR) Parainfluenza 2 (PCR) Parainfluenza 3 (PCR) Parainfluenza 4 (PCR) RSV (PCR) Entero/Rhino (PCR) SARS-CoV-2 (PCR) 05/14/21 05/14/21 05:04 05:04 WBC 6.89 RBC 4.25 Hgb 13.0 Hct 38.4 MCV 90.4 MCH 30.6 MCHC 33.9 RDW Coeff of Asaf 16.8 H Plt Count 268 Immature Gran % (Auto) 0.4 Neut % (Auto) 62.5 Lymph % (Auto) 26.0 [place] % (Auto) 9.0 Eos % (Auto) 1.7 Baso % (Auto) 0.4 Neut # (Auto) 4.3 Lymph # (Auto) 1.8 [place] # (Auto) 0.6 Eos # (Auto) 0.1 Baso # (Auto) 0.0 Immature Gran # (Auto) 0.0 ESR Sodium 138.4 Potassium 3.29 L Chloride 104.3 Carbon Dioxide 24.4 Anion Gap 12.99 BUN 10.3 Creatinine 0.53 L Estimated GFR (MDRD) 114.00 BUN/Creatinine Ratio 19.43 Glucose 118.8 H Hemoglobin A1c Lactic Acid Calcium 8.50 Total Bilirubin 0.53 AST 27.3 ALT 16.4 Alkaline Phosphatase 74.9 Total Protein 6.87 Albumin 4.02 Globulin 2.85 Albumin/Globulin Ratio 1.41 Amylase Lipase Procalcitonin Urine Color Urine Clarity Urine pH Ur Specific [place] Urine Protein Urine Glucose (UA) Urine Ketones Urine Blood Urine Nitrite Urine Bilirubin Urine Urobilinogen Ur Leukocyte Esterase Urine Microscopic RBC Ur Squamous Epith Cells Adenovirus (PCR) B. pertussis DNA (PCR) B.parapertussis DNA PCR C. pneumoniae DNA (PCR) Coronavirus OC43 (PCR) Coronavirus HKU1 (PCR) Coronavirus 229E (PCR) Coronavirus NL63 (PCR) Human Metapneumovir PCR Influenza Type A (PCR) Influenza B (RT-PCR) M. pneumoniae (PCR) Parainfluenza 1 (PCR) Parainfluenza 2 (PCR) Parainfluenza 3 (PCR) Parainfluenza 4 (PCR) RSV (PCR) Entero/Rhino (PCR) SARS-CoV-2 (PCR) CT abd/pel report: There is cardiomegaly without pericardial effusion. Hiatal hernia. Prominent common bile duct and pancreatic duct as described. No evidence of mass or choledocholithiasis.. Consider non emergent MRCP for further characterization.. Mild diverticulitis sigmoid colon. Education Provided to Patient and Family: Diverticulitis Follow-ups: Dr. Ray within a week. Discharge Disposition: Home Hospital Course: Admitted for IV abx, levaquin and flagyl, zofran for nausea. She made steady improvement. Noted to have persistent low K due to taking lasix. This d/c performed during a [id number] exam and total d/c time of 40 minutes. Plan: D/C home, she has cipro and flagyl to take. Rx zofran and KCl 10 mEq daily pending recheck.
== END 2021-05-14 14:40 | disposition home or self-care (01) | DRG 392 ==
LOC: ED 17:58 → MEDSURG A 21:10
PROVIDERS: ADMIT Family Medicine; ATTEND Emergency Medicine
DX: Z20.822 Contact with and (suspected) exposure to COVID-19; R53.83 Other fatigue; K57.92 Diverticulitis of intestine, part unspecified, without perforation or abscess without bleeding; Z79.899 Other long term (current) drug therapy; I51.7 Cardiomegaly